=== PATIENT | female | born 1990 | race Two or more races ===

== ENCOUNTER 2017-11-02 13:03 | Emergency (ER) | payer OTHER, SELFPAY ==
[~2017-11-02] VITALS: Ht 165.1 cm; Wt 80.0 kg
[2017-11-02 13:08] VITALS: BP 123/65
[2017-11-02] MEDS ORDERED: METHOCARBAMOL 750 MG TABLET PO ONE (13:30)
[2017-11-02] MEDS ORDERED: KETOROLAC 30 MG/1 ML IV ONE (13:30)
[2017-11-02] MEDS ORDERED: KETOROLAC 30 MG/1 ML ONE (13:35)
[2017-11-02] MEDS ORDERED: METHOCARBAMOL 750 MG TABLET ONE (13:35)
[2017-11-02] MEDS ORDERED: PLEASE ENTER ALLERGIES MC SCH (14:00)
== END 2017-11-02 14:13 | disposition home or self-care (01) ==
LOC: ED 14:07
DX: S76.012A Strain of muscle, fascia and tendon of left hip, initial encounter (principal); X58.XXXA Exposure to other specified factors, initial encounter; Y93.89 Activity, other specified; Y92.89 Other specified places as the place of occurrence of the external cause; Y99.8 Other external cause status
CPT/HCPCS: 73502; 96374; 99284; J1885

== ENCOUNTER → 2018-08-14 | Outpatient (CLI) | payer OTHER | END | disposition home or self-care (01) | LOC: RAD 12:41 | PROVIDERS: ATTEND Orthopaedic Surgery | DX: R60.9 Edema, unspecified (principal); M51.37 Other intervertebral disc degeneration, lumbosacral region; M48.061 Spinal stenosis, lumbar region without neurogenic claudication; M25.551 Pain in right hip; M25.552 Pain in left hip | CPT/HCPCS: 72148 ==